=== PATIENT | female | born 1970 | race Caucasian/White ===

== ENCOUNTER → 2016-07-07 | Day surgery (SDC) | payer OTHER ==
[~2016-07-07] VITALS: Ht 154.9 cm; Wt 63.5 kg
[~2016-07-07] MED LIST: BUPROPION HYDR300 M1 PO; HYDROMORPHONE HC2 MG PO; LORAZEPAM1 MG PO; WELLBUTRIN XL300 M2 PO
--- NOTE | 2016-07-07 09:02 | RADIOLOGY REPORT ---
EXAMINATION: XR PORTABLE CHEST CLINICAL INFORMATION: Distress during OR procedure. COMPARISON: None TECHNIQUE: Portable AP supine view of the chest was obtained. FINDINGS: An endotracheal tube seen in place with its tip 3.5 cm above the level ramez. The cardiomediastinal contours are unremarkable. There is no evidence of a pneumothorax or hemothorax. Atelectatic changes are noted at the left lung base. No vascular congestive changes are appreciated. The patient has undergone a anterior fusion in the lower cervical spine. The bony structures are otherwise unremarkable. IMPRESSION: 1. Endotracheal tube in satisfactory position. 2. Left basilar atelectasis. 3. No radiographic evidence of an emergent cardiopulmonary event. Note: This report was called in to the OR at 08:52 on the date of the examination.
--- NOTE | 2016-07-07 17:52 | RADIOLOGY REPORT ---
EXAMINATION: XR SACRUM AND COCCYX C-ARM FLUOROSCOPY ASSISTANCE CLINICAL INFORMATION: 46 year old female, attempted InterStim stage I in the operating room. COMPARISON: None TECHNIQUE: 2 spot radiographs of the lower lumbar and upper part of the pelvis were obtained at the time of the procedure. FINDINGS: There is a radiopaque marker identified projecting over the midline extending between L4, L5 and S1 vertebral bodies. The 2nd spot radiograph shows the radiopaque marker projecting to the right of the midline extending over the ala of the sacrum, S1 and S2 vertebral body region. IMPRESSION: Attempted InterStim stage I in the operating room showing findings as described above. Full procedural details will be dictated by Dr. Purdy.
--- NOTE | 2016-07-10 08:56 | Operative Report ---
Operative/Inv Procedure Report Surgery Date: 07/07/16 Name of Procedure: interstim implant stage 1 and 2, urethral sling/cystoscopy Pre-Operative Diagnosis: fecal incontinence and stress incontinence Post-Operative Diagnosis: same Estimated Blood Loss: none Surgeon/Drawer Waxer: EVELYN CASILLAS MD Anesthesia: local monitored anesthesi, moderate sedation Implants: none Drains: none Complications: anesthesia complications that resulted in aborted surgery Condition: stable ultimately but difficulty in determining the source of anesthesia issue initially Operative Indication: fecal incontinence and stress incontinence Operative/Procedure Note Note: Kailee Stewart was identified in the holding area and consented for interstim stage 1 and 2 and urethral sling/cystoscopy. The surgical risks, benefits and alternatives were given to the patient and all questions were answered. No family members were with her. Patient was taken to the operating room and placed in the prone position. Time out was performed. She was given IV antibiotics and light IV sedation was initiated. She was prepped and draped in the standard sterile fasion. The patient's anatomy was marked out with bone landmarks and then confirmed with flouroscopy. Approximately 1cc of 1% lidocaine was infiltrated into the area of interest at 7cm from the coccyx and 2cm lateral to spine. The localizing needle was placed and dropped into position without difficulty. She was stimulated with the external stimulator and patient was communicating where she was sensing the vibratory sensation. Suddenly, she stopped communicating with me. Upon looking on the nonsterile side of the drapes, it was clear that she was unresponsive and turning red and gagging. The procedure was aborted with the needle removed and the stretcher brought in to place her in the supine position. The procedure was aborted. The patient was unresponsive, tachycardic to the 170's and hypertensive to the 170/100's. She was red in the face and neck area but no other areas on her body. She was limp and did not respond to sternal rub. She was kept ventilated with the face mask oxygen. Findings: unable to proceed with procedure due to anesthesia complications Discharge Disposition: PACU
== END ==
LOC: STS 02:06
DX: N39.3 Stress incontinence (female) (male) (principal); Z53.09 Procedure and treatment not carried out because of other contraindication; T88.59XA Other complications of anesthesia, initial encounter; T41.1X5A Adverse effect of intravenous anesthetics, initial encounter; R00.0 Tachycardia, unspecified; R03.0 Elevated blood-pressure reading, without diagnosis of hypertension; R35.0 Frequency of micturition; R15.9 Full incontinence of feces
CPT/HCPCS: 72220; 81025; C1778; C1894; C9399; J0131; J0690; J2250